=== PATIENT | male | born 1960 | race Caucasian/White ===

== ENCOUNTER 2019-08-10 01:12 | Emergency (ER) | payer MEDICARE, OTHER ==
[~2019-08-10] VITALS: Ht 177.8 cm; Wt 68.2 kg
[~2019-08-10 01:12] MED LIST: ALBU8.5H8 IH; ASPI81TA39 PO; BENZ2TAB10 PO; HYDR25TA82 PO; MONT10TA21 PO; OMEP20TA25 PO; PRED10TA3 PO
[2019-08-10] MEDS ORDERED: ALBUTEROL SULFATE 2.5 MG/0.5 ML NEB SOLUTION NEB ONE (01:30)
[2019-08-10] MEDS ORDERED: IPRATROPIUM BROMIDE 0.5 MG/2.5 ML NEB SOLUTION NEB ONE (01:30)
[2019-08-10 01:49] LABS: BASOPHILS % (AUTO) 0.5 % (0.0-2.0); EOSINOPHILS % (AUTO) 0.3 % (1.0-6.0); HEMATOCRIT 40.9 % (41-53); HEMOGLOBIN 13.7 g/dL (13.5-17.5); LYMPHOCYTES # (AUTO) 2.2 K/uL (1.0-4.8); LYMPHOCYTES % (AUTO) 14.2 % (22.0-44.0); MEAN CORPUSCULAR HEMOGLOBIN 31.6 pg (26.0-34.0); MEAN CORPUSCULAR HGB CONC 33.6 G/dL (31.0-37.0); MEAN CORPUSCULAR VOLUME 94 fL (80-100); MONOCYTES % (AUTO) 6.5 % (2.0-9.0); NEUTROPHILS # (AUTO) 12.1 K/uL (1.8-7.7); NEUTROPHILS % (AUTO) 78.5 % (40.0-70.0); PLATELET COUNT (AUTO) 219 K/uL (150-450); RED BLOOD CELL COUNT(AUTO) 4.35 MIL/uL (4.50-5.90); RED CELL DISTRIBUTION WIDTH 14.7 % (11.5-14.5)
[2019-08-10 02:05] LABS: ANION GAP 10 mmol/L (8-16); CALCIUM, TOTAL 8.5 mg/dL (8.8-10.5); CARBON DIOXIDE 25 mmol/L (22-29); CHLORIDE 103 mmol/L (98-107); CREATININE 0.92 mg/dL (0.60-1.30); GLOMERULAR FILTR. RATE CALC > 60 mL/min (>60); GLUCOSE,RANDOM 101 mg/dL (70-110); POTASSIUM 3.5 mmol/L (3.5-5.1); SODIUM SERUM 138 mmol/L (136-145); UREA NITROGEN, BLOOD 18 mg/dL (7-18)
[2019-08-10 02:09] LABS: ALANINE AMINOTRANSFERASE 60 U/L (12-78); ALBUMIN 3.4 g/dL (3.4-5.0); ALKALINE PHOSPHATASE 51 U/L (46-116); ASPARTATE AMINOTRANSFERASE 39 U/L (15-37); BILIRUBIN,TOTAL 0.1 mg/dL (0.1-1.0); TOTAL PROTEIN, SERUM 6.3 g/dL (6.4-8.2)
[2019-08-10 02:10] LABS: B-TYPE NATRIURETIC PEPTIDE 23 pg/mL (0-100)
[2019-08-10] MEDS ORDERED: PERMETHRIN 1% 60 ML LOTION TP ONE (02:30)
[2019-08-10] MEDS ORDERED: ALBUTEROL SULFATE HFA 90 MCG/PUFF 8 GM INHALER IH ONE (02:30)
[2019-08-10] MEDS ORDERED: PredniSONE 20 MG TABLET PO ONE (02:30)
[2019-08-10 04:00] VITALS: BP 134/77
== END 2019-08-10 04:04 | disposition home or self-care (01) ==
LOC: EMS 01:14
DX: J45.901 Unspecified asthma with (acute) exacerbation (principal); F20.9 Schizophrenia, unspecified; F15.10 Other stimulant abuse, uncomplicated; F17.210 Nicotine dependence, cigarettes, uncomplicated; Z79.82 Long term (current) use of aspirin
CPT/HCPCS: 36415; 71045; 80053; 83880; 84484; 85025; 93005; 94640; 99284; 99406; J7512; J3535

== ENCOUNTER 2019-12-16 09:55 | Inpatient (IN) | payer MEDICARE, OTHER ==
[~2019-12-16] VITALS: Ht 172.7 cm; Wt 60.0 kg
[2019-12-16] MEDS ORDERED: PERMETHRIN 5% 60 GM CREAM TP ONE (10:45)
[2019-12-16 11:07] LABS: BASOPHILS % (AUTO) 0.8 % (0.0-2.0); EOSINOPHILS % (AUTO) 1.1 % (1.0-6.0); HEMATOCRIT 38.3 % (41-53); HEMOGLOBIN 12.7 g/dL (13.5-17.5); LYMPHOCYTES # (AUTO) 1.6 K/uL (1.0-4.8); LYMPHOCYTES % (AUTO) 16.9 % (22.0-44.0); MEAN CORPUSCULAR HEMOGLOBIN 29.7 pg (26.0-34.0); MEAN CORPUSCULAR HGB CONC 33.2 G/dL (31.0-37.0); MEAN CORPUSCULAR VOLUME 90 fL (80-100); MONOCYTES # (AUTO) 0.5 K/uL (0.1-1.0); MONOCYTES % (AUTO) 5.5 % (2.0-9.0); NEUTROPHILS % (AUTO) 75.7 % (40.0-70.0); PLATELET COUNT (AUTO) 379 K/uL (150-450); RED BLOOD CELL COUNT(AUTO) 4.27 MIL/uL (4.50-5.90); RED CELL DISTRIBUTION WIDTH 15.4 % (11.5-14.5)
[2019-12-16 11:23] LABS: D-DIMER 0.32 mg/L FEU (0.00-0.50); PROTHROMBIN TIME 10.1 SEC (9.4-11.6)
[2019-12-16 11:28] LABS: ANION GAP 6 mmol/L (8-16); CALCIUM, TOTAL 8.9 mg/dL (8.8-10.5); CARBON DIOXIDE 29 mmol/L (22-29); CHLORIDE 104 mmol/L (98-107); CREATININE 0.69 mg/dL (0.60-1.30); GLOMERULAR FILTR. RATE CALC > 60 mL/min (>60); GLUCOSE,RANDOM 82 mg/dL (70-110); POTASSIUM 4.5 mmol/L (3.5-5.1); SODIUM SERUM 139 mmol/L (136-145); UREA NITROGEN, BLOOD 10 mg/dL (7-18)
[2019-12-16 11:43] LABS: INFLUENZA TYPE A NEGATIVE FOR TYPE A (NEGATIVE); INFLUENZA TYPE B NEGATIVE FOR TYPE B (NEGATIVE)
[2019-12-16 11:49] LABS: LACTIC ACID 0.8 mmol/L (0.4-2.0)
[2019-12-16 11:50] LABS: B-TYPE NATRIURETIC PEPTIDE 81 pg/mL (0-100)
[2019-12-16 12:06] LABS: ALANINE AMINOTRANSFERASE 22 U/L (12-78); ALBUMIN 3.3 g/dL (3.4-5.0); ALKALINE PHOSPHATASE 86 U/L (46-116); ASPARTATE AMINOTRANSFERASE 20 U/L (15-37); BILIRUBIN,TOTAL 0.2 mg/dL (0.1-1.0); CREATINE KINASE, TOTAL ONLY 145 U/L (39-308); FERRITIN 57 ng/mL (26-388); LACTATE DEHYDROGENASE 168 U/L (85-227); TOTAL PROTEIN, SERUM 6.9 g/dL (6.4-8.2)
[2019-12-16] MEDS ORDERED: ACETAMINOPHEN 325 MG TABLET PO PRN ×2 (13:45→20:30)
[2019-12-16] MEDS ORDERED: 0.9% SODIUM CHLORIDE 10 ML SYRINGE IVP PRN ×2 (13:45→20:30)
[2019-12-16] MEDS ORDERED: MONT4GRA2 PO (17:17)
[2019-12-16] MEDS ORDERED: FLUT16H NASAL (17:17)
[2019-12-16] MEDS ORDERED: DIPH12.54 PO (17:17)
[2019-12-16] MEDS ORDERED: ALBU8HFA IH ×2 (17:17)
[2019-12-16] MEDS ORDERED: TIOT185 IH (17:17)
[2019-12-16] MEDS ORDERED: FOLI1 PO (17:17)
[2019-12-16] MEDS ORDERED: COMBISP IH (17:17)
[2019-12-16 19:21] VITALS: BP 108/74
[2019-12-16] MEDS ORDERED: MONT10TA21 PO (19:41)
[2019-12-16] MEDS: ALBUTEROL SULFATE/IPRATROPIUM 100-20 MCG/SPRAY 4 GM INHALER IH SCH (20:23)
[2019-12-16] MEDS: MethylPREDNISolone SOD SUCC 125 MG/2 ML VIAL IVP SCH (20:23)
[2019-12-16] MEDS: FAMOTIDINE 10 MG/ML 2 ML VIAL IVP SCH (20:30)
[2019-12-16] MEDS ORDERED: MAGNESIUM HYDROXIDE SUSPENSION 30 ML UDCUP PO PRN (20:30)
[2019-12-16] MEDS ORDERED: ONDANSETRON HCL 4 MG/2 ML VIAL IVP PRN (20:30)
[2019-12-16] MEDS ORDERED: ALBUTEROL SULFATE HFA 90 MCG/PUFF 8 GM INHALER IH SCH (21:00)
[2019-12-16] MEDS: DOCUSATE SODIUM 100 MG CAPSULE PO SCH (21:00)
[2019-12-16 23:52] VITALS: BP 137/79
[2019-12-17] MEDS: MethylPREDNISolone SOD SUCC 125 MG/2 ML VIAL IVP SCH ×4 (00:03→22:07)
[2019-12-17 04:12] VITALS: BP 128/76
[2019-12-17] MEDS: ChlordiazePOXIDE HCL 25 MG CAPSULE PO SCH ×3 (06:29→18:03)
[2019-12-17 06:36] LABS: BASOPHILS % (AUTO) 1.2 % (0.0-2.0); EOSINOPHILS % (AUTO) 0.1 % (1.0-6.0); HEMATOCRIT 45.1 % (41-53); LYMPHOCYTES # (AUTO) 0.7 K/uL (1.0-4.8); MEAN CORPUSCULAR HGB CONC 33.2 G/dL (31.0-37.0); MEAN CORPUSCULAR VOLUME 90 fL (80-100); MONOCYTES # (AUTO) 0.1 K/uL (0.1-1.0); MONOCYTES % (AUTO) 0.7 % (2.0-9.0); NEUTROPHILS # (AUTO) 6.6 K/uL (1.8-7.7); PLATELET COUNT (AUTO) 423 K/uL (150-450); RED BLOOD CELL COUNT(AUTO) 4.99 MIL/uL (4.50-5.90); RED CELL DISTRIBUTION WIDTH 15.7 % (11.5-14.5)
[2019-12-17 07:12] LABS: ALANINE AMINOTRANSFERASE 20 U/L (12-78); ALBUMIN 3.3 g/dL (3.4-5.0); ALKALINE PHOSPHATASE 92 U/L (46-116); ANION GAP 8 mmol/L (8-16); ASPARTATE AMINOTRANSFERASE 19 U/L (15-37); BILIRUBIN,TOTAL 0.2 mg/dL (0.1-1.0); CALCIUM, TOTAL 9.4 mg/dL (8.8-10.5); CARBON DIOXIDE 26 mmol/L (22-29); CHLORIDE 102 mmol/L (98-107); CREATININE 0.82 mg/dL (0.60-1.30); GLOMERULAR FILTR. RATE CALC > 60 mL/min (>60); GLUCOSE,RANDOM 139 mg/dL (70-110); POTASSIUM 5.3 mmol/L (3.5-5.1); SODIUM SERUM 136 mmol/L (136-145); TOTAL PROTEIN, SERUM 7.5 g/dL (6.4-8.2); UREA NITROGEN, BLOOD 17 mg/dL (7-18)
[2019-12-17 07:25] VITALS: BP 107/81
[2019-12-17] MEDS: DOCUSATE SODIUM 100 MG CAPSULE PO SCH ×2 (08:01→22:08)
[2019-12-17] MEDS: MONTELUKAST SODIUM 10 MG TABLET PO SCH (08:01)
[2019-12-17] MEDS: FLUTICASONE PROPIONATE 50 MCG/SPRAY 16 GM NASAL SPRAY NASAL SCH (08:01)
[2019-12-17] MEDS: FOLIC ACID 1 MG TABLET PO SCH (08:01)
[2019-12-17] MEDS: FAMOTIDINE 10 MG/ML 2 ML VIAL IVP SCH (08:01)
[2019-12-17] MEDS ORDERED: TIOTROPIUM BROMIDE 18 MCG/INH HANDIHALER [5] IH SCH (09:00)
[2019-12-17 11:26] VITALS: BP 116/78
[2019-12-17] MEDS: ALBUTEROL SULFATE/IPRATROPIUM 100-20 MCG/SPRAY 4 GM INHALER IH SCH ×4 (11:47→22:07)
[2019-12-17 15:03] VITALS: BP 128/66
[2019-12-17] MEDS: OxyCODONE HCL/ACETAMINOPHEN 5-325 MG TABLET PO PRN ×2 (16:02→23:32)
[2019-12-17 19:54] VITALS: BP 139/87
[2019-12-18] VITALS (8 sets, daily range): BP systolic 97–134; BP diastolic 52–92
[2019-12-18] MEDS: ChlordiazePOXIDE HCL 25 MG CAPSULE PO SCH ×5 (00:38→23:10)
[2019-12-18] MEDS: OxyCODONE HCL/ACETAMINOPHEN 5-325 MG TABLET PO PRN ×4 (05:43→23:15)
[2019-12-18] MEDS: ALBUTEROL SULFATE HFA 90 MCG/PUFF 8 GM INHALER IH PRN (05:44)
[2019-12-18] MEDS: MethylPREDNISolone SOD SUCC 125 MG/2 ML VIAL IVP SCH ×3 (08:07→23:11)
[2019-12-18] MEDS: FLUTICASONE PROPIONATE 50 MCG/SPRAY 16 GM NASAL SPRAY NASAL SCH (08:07)
[2019-12-18] MEDS: FOLIC ACID 1 MG TABLET PO SCH (08:08)
[2019-12-18] MEDS: MONTELUKAST SODIUM 10 MG TABLET PO SCH (08:08)
[2019-12-18] MEDS: THIAMINE HCL 100 MG TABLET PO SCH (08:08)
[2019-12-18] MEDS: FAMOTIDINE 10 MG/ML 2 ML VIAL IVP SCH (08:08)
[2019-12-18] MEDS: DOCUSATE SODIUM 100 MG CAPSULE PO SCH ×2 (08:08→20:10)
[2019-12-18] MEDS: ALBUTEROL SULFATE/IPRATROPIUM 100-20 MCG/SPRAY 4 GM INHALER IH SCH ×3 (12:12→20:10)
[2019-12-18 15:00] LABS: BASOPHILS % (AUTO) 0.6 % (0.0-2.0); EOSINOPHILS % (AUTO) 0 % (1.0-6.0); HEMATOCRIT 34.7 % (41-53); HEMOGLOBIN 11.5 g/dL (13.5-17.5); LYMPHOCYTES # (AUTO) 0.2 K/uL (1.0-4.8); LYMPHOCYTES % (AUTO) 1.4 % (22.0-44.0); MEAN CORPUSCULAR HEMOGLOBIN 29.8 pg (26.0-34.0); MEAN CORPUSCULAR HGB CONC 33.1 G/dL (31.0-37.0); MEAN CORPUSCULAR VOLUME 90 fL (80-100); MONOCYTES # (AUTO) 0.5 K/uL (0.1-1.0); MONOCYTES % (AUTO) 2.8 % (2.0-9.0); NEUTROPHILS # (AUTO) 15.9 K/uL (1.8-7.7); PLATELET COUNT (AUTO) 368 K/uL (150-450); RED BLOOD CELL COUNT(AUTO) 3.86 MIL/uL (4.50-5.90); RED CELL DISTRIBUTION WIDTH 16.3 % (11.5-14.5)
[2019-12-18 15:05] LABS: NEUTROPHILS % (AUTO) 95.2 % (40.0-70.0)
[2019-12-18] MEDS: ARIPiprazole 10 MG TABLET PO SCH (15:25)
[2019-12-18 15:30] LABS: ANION GAP 11 mmol/L (8-16); CALCIUM, TOTAL 8.6 mg/dL (8.8-10.5); CARBON DIOXIDE 22 mmol/L (22-29); CHLORIDE 101 mmol/L (98-107); CREATININE 0.93 mg/dL (0.60-1.30); GLOMERULAR FILTR. RATE CALC > 60 mL/min (>60); GLUCOSE,RANDOM 167 mg/dL (70-110); POTASSIUM 4.1 mmol/L (3.5-5.1); SODIUM SERUM 134 mmol/L (136-145); UREA NITROGEN, BLOOD 20 mg/dL (7-18)
[2019-12-18 15:36] LABS: ALANINE AMINOTRANSFERASE 19 U/L (12-78); ALBUMIN 3.3 g/dL (3.4-5.0); ALKALINE PHOSPHATASE 68 U/L (46-116); ASPARTATE AMINOTRANSFERASE 13 U/L (15-37); BILIRUBIN,TOTAL 0.1 mg/dL (0.1-1.0); TOTAL PROTEIN, SERUM 6.7 g/dL (6.4-8.2)
[2019-12-19 04:00] VITALS: BP 122/64
[2019-12-19] MEDS: ChlordiazePOXIDE HCL 25 MG CAPSULE PO SCH ×4 (06:12→23:43)
[2019-12-19 07:22] VITALS: BP 145/83
[2019-12-19] MEDS: DOCUSATE SODIUM 100 MG CAPSULE PO SCH ×2 (08:16→20:40)
[2019-12-19] MEDS: OxyCODONE HCL/ACETAMINOPHEN 5-325 MG TABLET PO PRN ×4 (08:16→20:47)
[2019-12-19] MEDS: FOLIC ACID 1 MG TABLET PO SCH (08:17)
[2019-12-19] MEDS: MONTELUKAST SODIUM 10 MG TABLET PO SCH (08:17)
[2019-12-19] MEDS: THIAMINE HCL 100 MG TABLET PO SCH (08:17)
[2019-12-19] MEDS: ARIPiprazole 10 MG TABLET PO SCH (08:18)
[2019-12-19] MEDS: FAMOTIDINE 10 MG/ML 2 ML VIAL IVP SCH (08:20)
[2019-12-19] MEDS: MethylPREDNISolone SOD SUCC 125 MG/2 ML VIAL IVP SCH ×3 (08:20→23:44)
[2019-12-19] MEDS: ALBUTEROL SULFATE/IPRATROPIUM 100-20 MCG/SPRAY 4 GM INHALER IH SCH ×4 (09:39→20:40)
[2019-12-19] MEDS: FLUTICASONE PROPIONATE 50 MCG/SPRAY 16 GM NASAL SPRAY NASAL SCH (09:40)
[2019-12-19 10:54] VITALS: BP 115/76
[2019-12-19 15:08] VITALS: BP 113/76
[2019-12-19] MEDS ORDERED: TEMAZEPAM 15 MG CAPSULE PO PRN (16:15)
[2019-12-19 19:11] VITALS: BP 127/83
[2019-12-19 23:49] VITALS: BP 121/83
[2019-12-20] MEDS: OxyCODONE HCL/ACETAMINOPHEN 5-325 MG TABLET PO PRN ×2 (03:10→08:28)
[2019-12-20 04:10] VITALS: BP 128/82
[2019-12-20] MEDS: ChlordiazePOXIDE HCL 25 MG CAPSULE PO SCH ×2 (05:53→11:06)
[2019-12-20 07:32] VITALS: BP 126/80
[2019-12-20] MEDS: ALBUTEROL SULFATE/IPRATROPIUM 100-20 MCG/SPRAY 4 GM INHALER IH SCH ×2 (08:25→13:38)
[2019-12-20] MEDS: FLUTICASONE PROPIONATE 50 MCG/SPRAY 16 GM NASAL SPRAY NASAL SCH (08:25)
[2019-12-20] MEDS: ALBUTEROL SULFATE HFA 90 MCG/PUFF 8 GM INHALER IH PRN (08:26)
[2019-12-20] MEDS: MethylPREDNISolone SOD SUCC 125 MG/2 ML VIAL IVP SCH (08:26)
[2019-12-20] MEDS: DOCUSATE SODIUM 100 MG CAPSULE PO SCH (08:26)
[2019-12-20] MEDS: FAMOTIDINE 10 MG/ML 2 ML VIAL IVP SCH (08:27)
[2019-12-20] MEDS: FOLIC ACID 1 MG TABLET PO SCH (08:27)
[2019-12-20] MEDS: ARIPiprazole 10 MG TABLET PO SCH (08:27)
[2019-12-20] MEDS: THIAMINE HCL 100 MG TABLET PO SCH (08:27)
[2019-12-20] MEDS: MONTELUKAST SODIUM 10 MG TABLET PO SCH (08:27)
[2019-12-20 11:39] VITALS: BP 121/78
[2019-12-20] MEDS ORDERED: LORazepam 1 MG TABLET PO PRN (13:30)
[2019-12-20] MEDS ORDERED: PredniSONE 20 MG TABLET PO ONE (13:30)
[2019-12-20] MEDS ORDERED: PRED20 PO ×3 (14:09→14:11)
[2019-12-20] MEDS ORDERED: TEMA15CA PO (14:09)
[2019-12-20] MEDS ORDERED: PRED10 PO (14:11)
[2019-12-21] MEDS ORDERED: FAMOTIDINE 20 MG TABLET PO SCH (09:00)
== END 2019-12-20 14:55 | disposition home or self-care (01) | DRG 190 ==
LOC: EMS 09:57 → 5N 14:03 → 6N 14:55 → 5S 12-18 10:45 → 6N 12-18 20:30
PROVIDERS: ADMIT Internal Medicine; ATTEND Internal Medicine
DX: J44.1 Chronic obstructive pulmonary disease with (acute) exacerbation (principal); E43 Unspecified severe protein-calorie malnutrition; F20.0 Paranoid schizophrenia; F10.20 Alcohol dependence, uncomplicated; D64.9 Anemia, unspecified; F17.210 Nicotine dependence, cigarettes, uncomplicated; Z20.828 Contact with and (suspected) exposure to other viral communicable diseases; Z68.20 Body mass index [BMI] 20.0-20.9, adult; Z88.1 Allergy status to other antibiotic agents
CPT/HCPCS: 82728; 83605; 83615; 85379; 85384; 86140; 87040; 87635; 87804; 93005; G0480; J2930; J3490; J3535

== ENCOUNTER 2020-03-14 18:38 | Emergency (ER) | payer MEDICARE, OTHER ==
[~2020-03-14] VITALS: Ht 177.8 cm; Wt 59.1 kg
[~2020-03-14 18:38] MED LIST changes: -ALBU8.5H8 IH; +ALBU8HFA IH; -ASPI81TA39 PO; +BENZ100C68 PO; -BENZ2TAB10 PO; +COMBISP IH; +DIPH12.54 PO; +FLUT16H NASAL; +FOLI-130 PO; -HYDR25TA82 PO; -OMEP20TA25 PO; +PRED10 PO; -PRED10TA3 PO; +PRED20 PO; +PRED5 PO; +TIOT185 IH
[2020-03-14] MEDS ORDERED: CEPHALEXIN MONOHYDRATE 500 MG CAPSULE PO ONE (19:30)
[2020-03-14] MEDS ORDERED: MethylPREDNISolone SOD SUCC 125 MG/2 ML VIAL IM ONE (19:30)
[2020-03-14] MEDS ORDERED: IPRATROPIUM BROMIDE HFA 17 MCG/PUFF 12.9 GM INHALER IH ONE (19:30)
[2020-03-14] MEDS ORDERED: ALBUTEROL SULFATE HFA 90 MCG/PUFF 8 GM INHALER IH ONE (19:30)
[2020-03-14 20:00] VITALS: BP 127/82
== END 2020-03-14 20:48 | disposition home or self-care (01) ==
LOC: EMS 18:48
DX: J44.0 Chronic obstructive pulmonary disease with (acute) lower respiratory infection (principal); J40 Bronchitis, not specified as acute or chronic; B86 Scabies; K29.70 Gastritis, unspecified, without bleeding; F20.9 Schizophrenia, unspecified; Z88.2 Allergy status to sulfonamides; Z79.899 Other long term (current) drug therapy; F10.10 Alcohol abuse, uncomplicated; F14.10 Cocaine abuse, uncomplicated; F17.210 Nicotine dependence, cigarettes, uncomplicated; Y90.9 Presence of alcohol in blood, level not specified
CPT/HCPCS: 94640; 96372; 99283; J2930; J3535

== ENCOUNTER 2020-03-14 23:45 | Emergency (ER) | payer MEDICARE, OTHER ==
[~2020-03-14] VITALS: Ht 175.3 cm; Wt 59.1 kg
[2020-03-15] MEDS ORDERED: ALBUTEROL SULFATE 5 MG/ML 20 ML NEB SOLN [BULK] NEB ONE (00:45)
[2020-03-15] MEDS ORDERED: 0.9% SODIUM CHLORIDE 5 ML NEB SOLUTION NEB ONE (01:13)
[2020-03-15 01:15] LABS: BASOPHILS % (AUTO) 0.2 % (0.0-2.0); EOSINOPHILS % (AUTO) 0.1 % (1.0-6.0); HEMATOCRIT 38.6 % (41-53); HEMOGLOBIN 13.1 g/dL (13.5-17.5); LYMPHOCYTES # (AUTO) 0.3 K/uL (1.0-4.8); LYMPHOCYTES % (AUTO) 3.7 % (22.0-44.0); MEAN CORPUSCULAR HGB CONC 33.9 G/dL (31.0-37.0); MEAN CORPUSCULAR VOLUME 92 fL (80-100); MONOCYTES # (AUTO) 0.1 K/uL (0.1-1.0); MONOCYTES % (AUTO) 0.7 % (2.0-9.0); NEUTROPHILS # (AUTO) 7.3 K/uL (1.8-7.7); PLATELET COUNT (AUTO) 251 K/uL (150-450); RED BLOOD CELL COUNT(AUTO) 4.22 MIL/uL (4.50-5.90); RED CELL DISTRIBUTION WIDTH 16.6 % (11.5-14.5)
[2020-03-15 01:21] LABS: ANION GAP 9 mmol/L (8-16); CALCIUM, TOTAL 8.4 mg/dL (8.8-10.5); CARBON DIOXIDE 27 mmol/L (22-29); CHLORIDE 98 mmol/L (98-107); CREATININE 1.06 mg/dL (0.60-1.30); GLOMERULAR FILTR. RATE CALC > 60 mL/min (>60); GLUCOSE,RANDOM 290 mg/dL (70-110); POTASSIUM 3.8 mmol/L (3.5-5.1); SODIUM SERUM 134 mmol/L (136-145); UREA NITROGEN, BLOOD 16 mg/dL (7-18)
[2020-03-15 01:24] LABS: NEUTROPHILS % (AUTO) 95.3 % (40.0-70.0)
[2020-03-15 01:27] LABS: ALANINE AMINOTRANSFERASE 34 U/L (12-78); ALKALINE PHOSPHATASE 77 U/L (46-116); ASPARTATE AMINOTRANSFERASE 16 U/L (15-37); TOTAL PROTEIN, SERUM 5.8 g/dL (6.4-8.2)
[2020-03-15 01:27] LABS: AMPHET/METH SCREEN,URINE NEGATIVE (NEGATIVE); BARBITURATE SCREEN, URINE NEGATIVE (NEGATIVE); BENZODIAZEPINES SCREEN,URINE NEGATIVE (NEGATIVE); CANNABINOID SCREEN,URINE NEGATIVE (NEGATIVE); COCAINE SCREEN,URINE NEGATIVE (NEGATIVE); METHADONE SCREEN, URINE NEGATIVE (NEGATIVE); OPIATE SCREEN,URINE NEGATIVE (NEGATIVE)
[2020-03-15 01:31] LABS: PHENCYCLIDINE SCREEN,URINE NEGATIVE (NEGATIVE)
[2020-03-15 01:38] LABS: BILIRUBIN,TOTAL 0.1 mg/dL (0.1-1.0)
[2020-03-15 01:48] LABS: B-TYPE NATRIURETIC PEPTIDE 10 pg/mL (0-100)
[2020-03-15] MEDS ORDERED: PredniSONE 20 MG TABLET PO ONE (05:00)
[2020-03-15 05:13] VITALS: BP 141/82
== END 2020-03-15 05:31 | disposition home or self-care (01) ==
LOC: EMS 23:47
DX: J44.9 Chronic obstructive pulmonary disease, unspecified (principal); F20.9 Schizophrenia, unspecified; F17.210 Nicotine dependence, cigarettes, uncomplicated; Z88.0 Allergy status to penicillin; Z88.2 Allergy status to sulfonamides; Z79.899 Other long term (current) drug therapy
CPT/HCPCS: 36415; 71045; 80053; 80307; 83880; 84484; 85025; 93005; 94640; 99285; G0480; J7512; 96372; J2930; J3535; J7611

== ENCOUNTER 2020-03-17 13:31 | Inpatient (IN) | payer MEDICARE, MEDICAID ==
[~2020-03-17] VITALS: Ht 177.8 cm; Wt 62.3 kg
[2020-03-17 17:08] VITALS: BP 155/84
[2020-03-17] MEDS: MAG HYDROX/AL HYDROX/SIMETH 30 ML SUSP UDCUP PO PRN (20:57)
[2020-03-17] MEDS: ZOLPIDEM TARTRATE 10 MG TABLET PO PRN (21:09)
[2020-03-18 08:00] VITALS: BP 145/89
[2020-03-18] MEDS ORDERED: CloNIDine HCL 0.1 MG TABLET PO PRN (08:30)
[2020-03-18] MEDS ORDERED: LOPERAMIDE HCL 2 MG CAPSULE PO PRN (08:30)
[2020-03-18] MEDS ORDERED: GuaiFENesin/D-METHORPHAN [SUGAR-FREE] 200-20MG/10 ML SYRUP UDCUP PO PRN (08:30)
[2020-03-18] MEDS ORDERED: MAGNESIUM HYDROXIDE SUSPENSION 30 ML UDCUP PO PRN (08:30)
[2020-03-18] MEDS ORDERED: ONDANSETRON HCL 4 MG TABLET PO PRN (08:30)
[2020-03-18] MEDS ORDERED: DOCUSATE SODIUM 100 MG CAPSULE PO PRN (08:30)
[2020-03-18] MEDS ORDERED: NICOTINE 14 MG/24 HOUR PATCH TD PRN (08:30)
[2020-03-18] MEDS ORDERED: PETROLATUM,WHITE 28 GM JELLY TP PRN (08:30)
[2020-03-18] MEDS: MONTELUKAST SODIUM 10 MG TABLET PO SCH (08:39)
[2020-03-18] MEDS: PredniSONE 20 MG TABLET PO SCH (08:39)
[2020-03-18] MEDS: LORazepam 2 MG TABLET PO PRN ×3 (08:39→17:44)
[2020-03-18] MEDS: ALBUTEROL SULFATE HFA 90 MCG/PUFF 8 GM INHALER IH PRN ×2 (09:18→20:36)
[2020-03-18] MEDS: HALOPERIDOL 5 MG TABLET PO PRN ×2 (10:30→16:47)
[2020-03-18] MEDS: RisperiDONE 2 MG TABLET PO SCH ×2 (13:21→20:34)
[2020-03-18 16:30] VITALS: BP 142/91
[2020-03-18] MEDS: MAG HYDROX/AL HYDROX/SIMETH 30 ML SUSP UDCUP PO PRN (16:58)
[2020-03-18] MEDS ORDERED: RisperiDONE 2 MG TABLET PO SCH (17:00)
[2020-03-18] MEDS: ZOLPIDEM TARTRATE 10 MG TABLET PO PRN (20:35)
[2020-03-19] VITALS: BP 118/92
[2020-03-19] MEDS: LORazepam 2 MG TABLET PO PRN ×4 (01:11→17:49)
[2020-03-19] MEDS: MAG HYDROX/AL HYDROX/SIMETH ES 30 ML SUSPENSION UDCUP PO PRN ×2 (03:01→16:01)
[2020-03-19] MEDS: MAG HYDROX/AL HYDROX/SIMETH 30 ML SUSP UDCUP PO PRN ×2 (03:02→20:47)
[2020-03-19] MEDS: HALOPERIDOL 5 MG TABLET PO PRN ×2 (03:29→09:02)
[2020-03-19 08:00] VITALS: BP 123/84
[2020-03-19] MEDS: MONTELUKAST SODIUM 10 MG TABLET PO SCH (08:35)
[2020-03-19] MEDS: PredniSONE 20 MG TABLET PO SCH (08:35)
[2020-03-19] MEDS: RisperiDONE 2 MG TABLET PO SCH ×2 (08:35→16:00)
[2020-03-19] MEDS: ALBUTEROL SULFATE HFA 90 MCG/PUFF 8 GM INHALER IH PRN (09:02)
[2020-03-19 16:01] VITALS: BP 110/76
[2020-03-19] MEDS: ZOLPIDEM TARTRATE 10 MG TABLET PO PRN (20:48)
[2020-03-20] MEDS: ALBUTEROL SULFATE HFA 90 MCG/PUFF 8 GM INHALER IH PRN (06:53)
[2020-03-20 08:42] VITALS: BP 112/82
[2020-03-20] MEDS: MONTELUKAST SODIUM 10 MG TABLET PO SCH (08:54)
[2020-03-20] MEDS: HALOPERIDOL 5 MG TABLET PO PRN ×2 (08:54→12:56)
[2020-03-20] MEDS: LORazepam 2 MG TABLET PO PRN ×3 (08:54→21:13)
[2020-03-20] MEDS: RisperiDONE 2 MG TABLET PO SCH ×2 (08:54→16:45)
[2020-03-20] MEDS: PredniSONE 20 MG TABLET PO SCH (08:54)
[2020-03-20] MEDS: MAG HYDROX/AL HYDROX/SIMETH ES 30 ML SUSPENSION UDCUP PO PRN ×2 (10:00→17:33)
[2020-03-20 21:23] VITALS: BP 129/77
[2020-03-21 00:50] VITALS: BP 130/82
[2020-03-21] MEDS: ZOLPIDEM TARTRATE 10 MG TABLET PO PRN ×2 (01:01→23:47)
[2020-03-21] MEDS: HALOPERIDOL 5 MG TABLET PO PRN ×3 (01:01→14:34)
[2020-03-21] MEDS: ALBUTEROL SULFATE HFA 90 MCG/PUFF 8 GM INHALER IH PRN ×2 (01:04→09:02)
[2020-03-21 08:00] VITALS: BP 139/92
[2020-03-21] MEDS: RisperiDONE 2 MG TABLET PO SCH (09:00)
[2020-03-21] MEDS: MONTELUKAST SODIUM 10 MG TABLET PO SCH (09:01)
[2020-03-21] MEDS: PredniSONE 20 MG TABLET PO SCH (09:01)
[2020-03-21] MEDS: LORazepam 2 MG TABLET PO PRN ×2 (09:01→14:34)
[2020-03-21] MEDS ORDERED: LORazepam 2 MG/ML VIAL ONE (10:13)
[2020-03-21] MEDS ORDERED: HALOPERIDOL LACTATE 5 MG/ML VIAL ONE (10:13)
[2020-03-21] MEDS ORDERED: DiphenhydrAMINE HCL 50 MG/ML VIAL ONE (10:13)
[2020-03-21] MEDS ORDERED: HALOPERIDOL LACTATE 5 MG/ML VIAL IM ONE (10:15)
[2020-03-21] MEDS ORDERED: LORazepam 2 MG/ML VIAL IM ONE (10:15)
[2020-03-21] MEDS ORDERED: DiphenhydrAMINE HCL 50 MG/ML VIAL IM ONE (10:15)
[2020-03-21] MEDS: CarBAMazepine 200 MG TABLET PO SCH ×2 (10:20→17:05)
[2020-03-21] MEDS: MAG HYDROX/AL HYDROX/SIMETH ES 30 ML SUSPENSION UDCUP PO PRN ×2 (15:02→18:21)
[2020-03-21 16:00] VITALS: BP 115/81
[2020-03-21] MEDS: RisperiDONE 3 MG TABLET PO SCH (17:05)
[2020-03-21] MEDS: ACETAMINOPHEN 325 MG TABLET PO PRN (18:22)
[2020-03-22 00:10] VITALS: BP 138/87
[2020-03-22] MEDS: ALBUTEROL SULFATE HFA 90 MCG/PUFF 8 GM INHALER IH PRN ×2 (00:17→09:15)
[2020-03-22] MEDS: LORazepam 2 MG TABLET PO PRN ×3 (03:56→13:36)
[2020-03-22 07:29] LABS: MAGNESIUM 2.2 mg/dL (1.80-2.40); PHOSPHORUS 4.1 mg/dL (2.5-4.9)
[2020-03-22 08:00] VITALS: BP 143/76
[2020-03-22] MEDS: MULTIVITAMINS WITH MINERALS, THERAPEUTIC TABLET PO SCH (09:15)
[2020-03-22] MEDS: MONTELUKAST SODIUM 10 MG TABLET PO SCH (09:15)
[2020-03-22] MEDS: RisperiDONE 3 MG TABLET PO SCH ×2 (09:16→16:01)
[2020-03-22] MEDS: CarBAMazepine 200 MG TABLET PO SCH ×2 (09:16→16:01)
[2020-03-22] MEDS: PredniSONE 20 MG TABLET PO SCH (09:17)
[2020-03-22] MEDS: HALOPERIDOL 5 MG TABLET PO PRN ×2 (09:19→13:36)
[2020-03-22] MEDS ORDERED: 0.9% SODIUM CHLORIDE 5 ML NEB SOLUTION NEB ONE (10:41)
[2020-03-22] MEDS: ALBUTEROL SULFATE 2.5 MG/0.5 ML NEB SOLUTION NEB PRN (10:59)
[2020-03-22 15:55] VITALS: BP 133/77
[2020-03-22] MEDS: ACETAMINOPHEN 325 MG TABLET PO PRN (16:01)
[2020-03-22 16:51] VITALS: BP 125/75
[2020-03-22] MEDS: ZOLPIDEM TARTRATE 10 MG TABLET PO PRN (20:41)
[2020-03-23] MEDS: ACETAMINOPHEN 325 MG TABLET PO PRN (05:44)
[2020-03-23 05:46] VITALS: BP 130/68
[2020-03-23] MEDS: RisperiDONE 3 MG TABLET PO SCH ×2 (08:57→17:56)
[2020-03-23] MEDS: MULTIVITAMINS WITH MINERALS, THERAPEUTIC TABLET PO SCH (08:57)
[2020-03-23] MEDS: PredniSONE 20 MG TABLET PO SCH (08:58)
[2020-03-23] MEDS: MONTELUKAST SODIUM 10 MG TABLET PO SCH (08:58)
[2020-03-23] MEDS: CarBAMazepine 200 MG TABLET PO SCH ×2 (09:00→17:56)
[2020-03-23] MEDS: LORazepam 2 MG TABLET PO PRN ×4 (09:03→23:59)
[2020-03-23] MEDS: ALBUTEROL SULFATE HFA 90 MCG/PUFF 8 GM INHALER IH PRN ×2 (09:04→19:10)
[2020-03-23] MEDS: MAG HYDROX/AL HYDROX/SIMETH ES 30 ML SUSPENSION UDCUP PO PRN (09:04)
[2020-03-23] MEDS: MAG HYDROX/AL HYDROX/SIMETH 30 ML SUSP UDCUP PO PRN (09:04)
[2020-03-23 09:34] VITALS: BP 133/70
[2020-03-23 16:51] VITALS: BP 131/78
[2020-03-24] MEDS: ACETAMINOPHEN 325 MG TABLET PO PRN ×2 (01:53→23:30)
[2020-03-24 01:59] VITALS: BP 122/93
[2020-03-24 08:00] VITALS: BP 132/79
[2020-03-24] MEDS: MULTIVITAMINS WITH MINERALS, THERAPEUTIC TABLET PO SCH (09:04)
[2020-03-24] MEDS: RisperiDONE 3 MG TABLET PO SCH ×2 (09:04→16:54)
[2020-03-24] MEDS: CarBAMazepine 200 MG TABLET PO SCH ×2 (09:05→16:54)
[2020-03-24] MEDS: MONTELUKAST SODIUM 10 MG TABLET PO SCH (09:06)
[2020-03-24] MEDS: PredniSONE 20 MG TABLET PO SCH (09:06)
[2020-03-24] MEDS: LORazepam 2 MG TABLET PO PRN ×2 (09:22→16:59)
[2020-03-24] MEDS: ALBUTEROL SULFATE HFA 90 MCG/PUFF 8 GM INHALER IH PRN ×2 (09:24→23:33)
[2020-03-24] MEDS: HALOPERIDOL 5 MG TABLET PO PRN (10:49)
[2020-03-24] MEDS: MAG HYDROX/AL HYDROX/SIMETH ES 30 ML SUSPENSION UDCUP PO PRN (11:28)
[2020-03-24 16:00] VITALS: BP 151/70
[2020-03-24] MEDS: ZOLPIDEM TARTRATE 10 MG TABLET PO PRN (21:59)
[2020-03-24 23:30] VITALS: BP 121/84
[2020-03-25] MEDS: LORazepam 2 MG TABLET PO PRN ×4 (01:12→14:34)
[2020-03-25] MEDS: IBUPROFEN 400 MG TABLET PO PRN ×2 (03:09→15:58)
[2020-03-25 03:10] VITALS: BP 129/80
[2020-03-25] MEDS: HALOPERIDOL 5 MG TABLET PO PRN ×2 (04:05→15:57)
[2020-03-25] MEDS: PredniSONE 20 MG TABLET PO SCH (08:24)
[2020-03-25] MEDS: CarBAMazepine 200 MG TABLET PO SCH ×3 (08:24→15:57)
[2020-03-25] MEDS: MULTIVITAMINS WITH MINERALS, THERAPEUTIC TABLET PO SCH (08:25)
[2020-03-25 08:26] VITALS: BP 130/70
[2020-03-25] MEDS: ACETAMINOPHEN 325 MG TABLET PO PRN (08:26)
[2020-03-25] MEDS: RisperiDONE 3 MG TABLET PO SCH ×2 (08:26→15:54)
[2020-03-25] MEDS: MONTELUKAST SODIUM 10 MG TABLET PO SCH (08:27)
[2020-03-25] MEDS: ALBUTEROL SULFATE HFA 90 MCG/PUFF 8 GM INHALER IH PRN ×2 (08:28→18:49)
[2020-03-25 09:26] VITALS: BP 120/70
[2020-03-25] MEDS: MAG HYDROX/AL HYDROX/SIMETH 30 ML SUSP UDCUP PO PRN (09:59)
[2020-03-25 15:58] VITALS: BP 122/69
[2020-03-25 17:12] VITALS: BP 108/57
[2020-03-25] MEDS: ZOLPIDEM TARTRATE 10 MG TABLET PO PRN (20:01)
[2020-03-25] MEDS: MAG HYDROX/AL HYDROX/SIMETH ES 30 ML SUSPENSION UDCUP PO PRN (20:13)
[2020-03-26] MEDS: LORazepam 2 MG TABLET PO PRN ×2 (01:37→14:10)
[2020-03-26] MEDS: IBUPROFEN 400 MG TABLET PO PRN ×2 (01:38→17:20)
[2020-03-26 01:39] VITALS: BP 123/78
[2020-03-26] MEDS: ALBUTEROL SULFATE HFA 90 MCG/PUFF 8 GM INHALER IH PRN ×3 (03:06→22:58)
[2020-03-26] MEDS: MULTIVITAMINS WITH MINERALS, THERAPEUTIC TABLET PO SCH (08:13)
[2020-03-26] MEDS: PredniSONE 20 MG TABLET PO SCH (08:13)
[2020-03-26] MEDS: RisperiDONE 3 MG TABLET PO SCH ×2 (08:13→17:19)
[2020-03-26] MEDS: MONTELUKAST SODIUM 10 MG TABLET PO SCH (08:14)
[2020-03-26] MEDS: ACETAMINOPHEN 325 MG TABLET PO PRN ×2 (08:18→20:52)
[2020-03-26] MEDS: CarBAMazepine 200 MG TABLET PO SCH ×2 (08:20→17:20)
[2020-03-26 09:30] VITALS: BP 159/91
[2020-03-26 16:00] VITALS: BP 97/65
[2020-03-26] MEDS: MAG HYDROX/AL HYDROX/SIMETH ES 30 ML SUSPENSION UDCUP PO PRN (20:49)
[2020-03-26 20:52] VITALS: BP 118/74
[2020-03-26] MEDS: ZOLPIDEM TARTRATE 10 MG TABLET PO PRN (20:53)
[2020-03-27 01:06] VITALS: BP 137/76
[2020-03-27] MEDS: MAG HYDROX/AL HYDROX/SIMETH ES 30 ML SUSPENSION UDCUP PO PRN (01:56)
[2020-03-27 03:49] VITALS: BP 114/70
[2020-03-27] MEDS: LORazepam 2 MG TABLET PO PRN ×2 (03:49→14:28)
[2020-03-27] MEDS: RisperiDONE 3 MG TABLET PO SCH ×2 (08:25→16:29)
[2020-03-27] MEDS: MONTELUKAST SODIUM 10 MG TABLET PO SCH (08:25)
[2020-03-27] MEDS: PredniSONE 20 MG TABLET PO SCH (08:25)
[2020-03-27] MEDS: MULTIVITAMINS WITH MINERALS, THERAPEUTIC TABLET PO SCH (08:25)
[2020-03-27] MEDS: ALBUTEROL SULFATE HFA 90 MCG/PUFF 8 GM INHALER IH PRN ×2 (08:26→16:29)
[2020-03-27] MEDS: CarBAMazepine 200 MG TABLET PO SCH ×2 (08:26→16:29)
[2020-03-27] MEDS: MAG HYDROX/AL HYDROX/SIMETH 30 ML SUSP UDCUP PO PRN (16:29)
[2020-03-27 16:43] VITALS: BP 98/65
[2020-03-27 17:18] VITALS: BP 123/83
[2020-03-27] MEDS: IBUPROFEN 400 MG TABLET PO PRN (17:18)
[2020-03-27] MEDS: ZOLPIDEM TARTRATE 10 MG TABLET PO PRN (22:20)
[2020-03-28 00:40] VITALS: BP 127/87
[2020-03-28] MEDS: ACETAMINOPHEN 325 MG TABLET PO PRN ×2 (00:46→12:35)
[2020-03-28] MEDS: LORazepam 2 MG TABLET PO PRN ×3 (00:46→16:46)
[2020-03-28] MEDS: ALBUTEROL SULFATE HFA 90 MCG/PUFF 8 GM INHALER IH PRN ×3 (02:14→16:04)
[2020-03-28] MEDS: MULTIVITAMINS WITH MINERALS, THERAPEUTIC TABLET PO SCH (08:08)
[2020-03-28] MEDS: RisperiDONE 3 MG TABLET PO SCH ×2 (08:08→15:59)
[2020-03-28] MEDS: PredniSONE 20 MG TABLET PO SCH (08:08)
[2020-03-28] MEDS: MONTELUKAST SODIUM 10 MG TABLET PO SCH (08:08)
[2020-03-28] MEDS: CarBAMazepine 200 MG TABLET PO SCH ×2 (08:08→15:59)
[2020-03-28 08:10] VITALS: BP_SYST 118; BP_SYST 98; BP_DIAS 63; BP_DIAS 68
[2020-03-28] MEDS: IBUPROFEN 400 MG TABLET PO PRN ×2 (08:10→20:20)
[2020-03-28] MEDS: MAG HYDROX/AL HYDROX/SIMETH ES 30 ML SUSPENSION UDCUP PO PRN ×2 (09:32→20:21)
[2020-03-28 12:35] VITALS: BP 116/68
[2020-03-28] MEDS: HALOPERIDOL 5 MG TABLET PO PRN (16:00)
[2020-03-28 16:17] VITALS: BP 115/56
[2020-03-28] MEDS: ZOLPIDEM TARTRATE 10 MG TABLET PO PRN (20:20)
[2020-03-28 20:22] VITALS: BP 112/65
[2020-03-29 00:50] VITALS: BP 127/83
[2020-03-29] MEDS: ACETAMINOPHEN 325 MG TABLET PO PRN (00:53)
[2020-03-29] MEDS: LORazepam 2 MG TABLET PO PRN ×3 (00:53→15:52)
[2020-03-29] MEDS: ALBUTEROL SULFATE HFA 90 MCG/PUFF 8 GM INHALER IH PRN ×2 (00:54→15:55)
[2020-03-29] MEDS: HALOPERIDOL 5 MG TABLET PO PRN ×2 (06:40→20:40)
[2020-03-29] MEDS: RisperiDONE 3 MG TABLET PO SCH ×2 (08:13→16:35)
[2020-03-29] MEDS: MULTIVITAMINS WITH MINERALS, THERAPEUTIC TABLET PO SCH (08:13)
[2020-03-29] MEDS: CarBAMazepine 200 MG TABLET PO SCH ×2 (08:13→16:36)
[2020-03-29] MEDS: PredniSONE 20 MG TABLET PO SCH (08:14)
[2020-03-29] MEDS: MONTELUKAST SODIUM 10 MG TABLET PO SCH (08:14)
[2020-03-29 08:41] VITALS: BP 117/70
[2020-03-29] MEDS: MAG HYDROX/AL HYDROX/SIMETH ES 30 ML SUSPENSION UDCUP PO PRN ×2 (08:57→20:41)
[2020-03-29 11:38] VITALS: BP 110/73
[2020-03-29 14:11] VITALS: BP 97/63
[2020-03-29 14:45] VITALS: BP 103/73
[2020-03-29] MEDS: IBUPROFEN 400 MG TABLET PO PRN (14:45)
[2020-03-29 19:37] VITALS: BP 132/92
[2020-03-29] MEDS: ZOLPIDEM TARTRATE 10 MG TABLET PO PRN (20:41)
[2020-03-30 04:50] VITALS: BP 137/79
[2020-03-30] MEDS: ACETAMINOPHEN 325 MG TABLET PO PRN ×2 (04:50→19:07)
[2020-03-30] MEDS: ALBUTEROL SULFATE HFA 90 MCG/PUFF 8 GM INHALER IH PRN ×2 (04:50→15:43)
[2020-03-30] MEDS: LORazepam 2 MG TABLET PO PRN ×3 (04:56→20:57)
[2020-03-30] MEDS: MONTELUKAST SODIUM 10 MG TABLET PO SCH (08:34)
[2020-03-30] MEDS: RisperiDONE 3 MG TABLET PO SCH ×3 (08:34→16:00)
[2020-03-30] MEDS: MULTIVITAMINS WITH MINERALS, THERAPEUTIC TABLET PO SCH (08:34)
[2020-03-30] MEDS: CarBAMazepine 200 MG TABLET PO SCH ×2 (08:35→16:00)
[2020-03-30] MEDS: PredniSONE 20 MG TABLET PO SCH (08:36)
[2020-03-30 09:00] VITALS: BP 107/63
[2020-03-30] MEDS: MAG HYDROX/AL HYDROX/SIMETH ES 30 ML SUSPENSION UDCUP PO PRN (11:58)
[2020-03-30] MEDS: HALOPERIDOL 5 MG TABLET PO PRN (14:20)
[2020-03-30 16:00] VITALS: BP 115/68
[2020-03-30] MEDS: IBUPROFEN 400 MG TABLET PO PRN (16:00)
[2020-03-30 19:07] VITALS: BP 118/65
[2020-03-30] MEDS: ZOLPIDEM TARTRATE 10 MG TABLET PO PRN (20:24)
[2020-03-31 03:17] VITALS: BP 106/56
[2020-03-31] MEDS: HALOPERIDOL 5 MG TABLET PO PRN (03:17)
[2020-03-31] MEDS: ALBUTEROL SULFATE HFA 90 MCG/PUFF 8 GM INHALER IH PRN ×3 (03:17→21:08)
[2020-03-31] MEDS: IBUPROFEN 400 MG TABLET PO PRN ×2 (05:00→19:19)
[2020-03-31 08:00] VITALS: BP 142/78
[2020-03-31] MEDS: PredniSONE 20 MG TABLET PO SCH (08:07)
[2020-03-31] MEDS: RisperiDONE 3 MG TABLET PO SCH ×3 (08:07→23:11)
[2020-03-31] MEDS: MULTIVITAMINS WITH MINERALS, THERAPEUTIC TABLET PO SCH (08:07)
[2020-03-31] MEDS: CarBAMazepine 200 MG TABLET PO SCH ×3 (08:07→23:09)
[2020-03-31] MEDS: MONTELUKAST SODIUM 10 MG TABLET PO SCH (08:08)
[2020-03-31] MEDS: LORazepam 2 MG TABLET PO PRN ×3 (08:10→23:02)
[2020-03-31] MEDS: MAG HYDROX/AL HYDROX/SIMETH ES 30 ML SUSPENSION UDCUP PO PRN ×2 (10:45→21:08)
[2020-03-31] MEDS: ALBUTEROL SULFATE 2.5 MG/0.5 ML NEB SOLUTION NEB PRN (11:20)
[2020-03-31] MEDS ORDERED: HALOPERIDOL LACTATE 5 MG/ML VIAL IM PRN (13:45)
[2020-03-31 17:14] VITALS: BP 120/80
[2020-03-31] MEDS: ZOLPIDEM TARTRATE 10 MG TABLET PO PRN (21:08)
[2020-04-01 01:00] VITALS: BP 110/78
[2020-04-01] MEDS: ACETAMINOPHEN 325 MG TABLET PO PRN ×3 (01:06→23:52)
[2020-04-01 08:00] VITALS: BP 118/79
[2020-04-01] MEDS: RisperiDONE 3 MG TABLET PO SCH (08:24)
[2020-04-01] MEDS: MONTELUKAST SODIUM 10 MG TABLET PO SCH (08:25)
[2020-04-01] MEDS: PredniSONE 20 MG TABLET PO SCH (08:25)
[2020-04-01] MEDS: CarBAMazepine 200 MG TABLET PO SCH (08:25)
[2020-04-01] MEDS: MULTIVITAMINS WITH MINERALS, THERAPEUTIC TABLET PO SCH (08:25)
[2020-04-01] MEDS: LORazepam 2 MG TABLET PO PRN (12:55)
[2020-04-01 16:41] VITALS: BP 115/71
[2020-04-01] MEDS: ALBUTEROL SULFATE HFA 90 MCG/PUFF 8 GM INHALER IH PRN (16:46)
[2020-04-01] MEDS: IBUPROFEN 400 MG TABLET PO PRN (16:47)
[2020-04-01] MEDS: ZOLPIDEM TARTRATE 10 MG TABLET PO PRN (23:35)
[2020-04-01 23:52] VITALS: BP 112/56
[2020-04-02] MEDS: MAG HYDROX/AL HYDROX/SIMETH ES 30 ML SUSPENSION UDCUP PO PRN ×2 (01:46→14:46)
[2020-04-02] MEDS: ALBUTEROL SULFATE HFA 90 MCG/PUFF 8 GM INHALER IH PRN ×2 (01:46→10:03)
[2020-04-02] MEDS: MULTIVITAMINS WITH MINERALS, THERAPEUTIC TABLET PO SCH (08:35)
[2020-04-02] MEDS: RisperiDONE 3 MG TABLET PO SCH ×2 (08:36→17:16)
[2020-04-02] MEDS: PredniSONE 20 MG TABLET PO SCH (08:36)
[2020-04-02] MEDS: MONTELUKAST SODIUM 10 MG TABLET PO SCH (08:36)
[2020-04-02] MEDS: CarBAMazepine 200 MG TABLET PO SCH ×2 (08:36→17:16)
[2020-04-02] MEDS: LORazepam 2 MG TABLET PO PRN ×2 (08:41→15:54)
[2020-04-02 08:54] VITALS: BP 106/66
[2020-04-02] MEDS: ACETAMINOPHEN 325 MG TABLET PO PRN (12:31)
[2020-04-02 16:32] VITALS: BP 112/73
[2020-04-02] MEDS: IBUPROFEN 400 MG TABLET PO PRN (17:22)
[2020-04-02 17:23] VITALS: BP 112/73
[2020-04-02] MEDS: ZOLPIDEM TARTRATE 10 MG TABLET PO PRN (20:30)
[2020-04-03] VITALS: BP 102/60
[2020-04-03] MEDS: LORazepam 2 MG TABLET PO PRN ×3 (01:28→20:34)
[2020-04-03] MEDS: ACETAMINOPHEN 325 MG TABLET PO PRN (03:14)
[2020-04-03] MEDS: HALOPERIDOL 5 MG TABLET PO PRN (03:14)
[2020-04-03] MEDS: MULTIVITAMINS WITH MINERALS, THERAPEUTIC TABLET PO SCH (08:33)
[2020-04-03] MEDS: MONTELUKAST SODIUM 10 MG TABLET PO SCH (08:34)
[2020-04-03] MEDS: CarBAMazepine 200 MG TABLET PO SCH ×2 (08:34→16:22)
[2020-04-03] MEDS: PredniSONE 20 MG TABLET PO SCH (08:34)
[2020-04-03] MEDS: RisperiDONE 3 MG TABLET PO SCH ×2 (08:34→16:22)
[2020-04-03] MEDS: ALBUTEROL SULFATE HFA 90 MCG/PUFF 8 GM INHALER IH PRN ×2 (08:37→17:14)
[2020-04-03 09:17] VITALS: BP 126/76
[2020-04-03] MEDS: MAG HYDROX/AL HYDROX/SIMETH ES 30 ML SUSPENSION UDCUP PO PRN ×2 (14:22→20:35)
[2020-04-03] MEDS: IBUPROFEN 400 MG TABLET PO PRN (16:25)
[2020-04-03 16:26] VITALS: BP 107/69
[2020-04-04 02:45] VITALS: BP 16/60
[2020-04-04] MEDS: ACETAMINOPHEN 325 MG TABLET PO PRN ×2 (02:50→23:51)
[2020-04-04] MEDS: LORazepam 2 MG TABLET PO PRN ×2 (02:50→16:21)
[2020-04-04] MEDS: HALOPERIDOL 5 MG TABLET PO PRN (02:50)
[2020-04-04] MEDS: ALBUTEROL SULFATE HFA 90 MCG/PUFF 8 GM INHALER IH PRN ×2 (04:09→14:29)
[2020-04-04] MEDS: RisperiDONE 3 MG TABLET PO SCH ×2 (08:09→16:06)
[2020-04-04] MEDS: MULTIVITAMINS WITH MINERALS, THERAPEUTIC TABLET PO SCH (08:09)
[2020-04-04] MEDS: CarBAMazepine 200 MG TABLET PO SCH ×2 (08:10→16:06)
[2020-04-04] MEDS: PredniSONE 20 MG TABLET PO SCH (08:10)
[2020-04-04] MEDS: MONTELUKAST SODIUM 10 MG TABLET PO SCH (08:10)
[2020-04-04 09:00] VITALS: BP 116/68
[2020-04-04] MEDS ORDERED: 0.9% SODIUM CHLORIDE 5 ML NEB SOLUTION NEB ONE (11:45)
[2020-04-04] MEDS: ALBUTEROL SULFATE 2.5 MG/0.5 ML NEB SOLUTION NEB PRN (12:04)
[2020-04-04] MEDS: MAG HYDROX/AL HYDROX/SIMETH ES 30 ML SUSPENSION UDCUP PO PRN ×2 (14:33→14:37)
[2020-04-04] MEDS: IBUPROFEN 400 MG TABLET PO PRN (16:21)
[2020-04-04 16:26] VITALS: BP 116/62
[2020-04-04] MEDS: ZOLPIDEM TARTRATE 10 MG TABLET PO PRN (23:50)
[2020-04-05 00:02] VITALS: BP 118/74
[2020-04-05] MEDS: LORazepam 2 MG TABLET PO PRN (00:15)
[2020-04-05 08:00] VITALS: BP 138/79
[2020-04-05] MEDS: CarBAMazepine 200 MG TABLET PO SCH (08:57)
[2020-04-05] MEDS: RisperiDONE 3 MG TABLET PO SCH (08:57)
[2020-04-05] MEDS: PredniSONE 20 MG TABLET PO SCH (08:57)
[2020-04-05] MEDS: MONTELUKAST SODIUM 10 MG TABLET PO SCH (08:57)
[2020-04-05] MEDS: MULTIVITAMINS WITH MINERALS, THERAPEUTIC TABLET PO SCH (08:57)
[2020-04-05] MEDS: ALBUTEROL SULFATE HFA 90 MCG/PUFF 8 GM INHALER IH PRN (09:39)
[2020-04-05] MEDS ORDERED: CARB100 PO (11:05)
[2020-04-05] MEDS ORDERED: RISP3TAB14 PO (11:05)
[2020-04-05] MEDS ORDERED: PRED20 PO (11:07)
== END 2020-04-05 11:50 | disposition home or self-care (01) | DRG 885 ==
LOC: 3EI 13:46 → 3EX 03-22 10:00
PROVIDERS: ADMIT Psychiatry & Neurology Child & Adolescent Psychiatry; ATTEND Psychiatry & Neurology Child & Adolescent Psychiatry
DX: F20.0 Paranoid schizophrenia (principal); J45.909 Unspecified asthma, uncomplicated; F10.10 Alcohol abuse, uncomplicated; F17.200 Nicotine dependence, unspecified, uncomplicated; Z20.828 Contact with and (suspected) exposure to other viral communicable diseases; J44.9 Chronic obstructive pulmonary disease, unspecified; Z59.0 Homelessness; F41.9 Anxiety disorder, unspecified; R03.0 Elevated blood-pressure reading, without diagnosis of hypertension; Z91.19 Patient's noncompliance with other medical treatment and regimen
CPT/HCPCS: 83735; 84100; 87081; 94640; G0378; J1200; J1630; J2060; J3535

== ENCOUNTER 2020-04-30 17:33 | Emergency (ER) | payer MEDICARE, OTHER ==
[~2020-04-30] VITALS: Ht 177.8 cm; Wt 75.0 kg
[~2020-04-30 17:33] MED LIST changes: -ALBU8HFA IH; -BENZ100C68 PO; +CARB100 PO; -COMBISP IH; -DIPH12.54 PO; -FLUT16H NASAL; -FOLI-130 PO; +MONT-35 PO; -MONT10TA21 PO; -PRED10 PO; -PRED5 PO; +RISP3TAB14 PO; -TIOT185 IH
[2020-04-30] MEDS ORDERED: PERMETHRIN 1% 60 ML LOTION TP ONE (18:15)
[2020-04-30] MEDS ORDERED: PERMETHRIN 5% 60 GM CREAM TP ONE (18:30)
[2020-04-30] MEDS ORDERED: ALBUTEROL SULFATE HFA 90 MCG/PUFF 8 GM INHALER IH ONE (19:00)
[2020-04-30 19:16] VITALS: BP 120/78
== END 2020-04-30 19:43 | disposition home or self-care (01) ==
LOC: EMS 17:33
DX: B86 Scabies (principal); F17.210 Nicotine dependence, cigarettes, uncomplicated; J45.909 Unspecified asthma, uncomplicated; F20.9 Schizophrenia, unspecified
CPT/HCPCS: 94640; J3535

== ENCOUNTER 2020-05-14 16:45 | Emergency (ER) | payer MEDICARE, OTHER ==
[~2020-05-14] VITALS: Ht 177.8 cm; Wt 75.0 kg
[2020-05-14 16:55] VITALS: BP 130/65
[2020-05-14] MEDS ORDERED: BACITRACIN 0.9 GM PACKET OINTMENT TP ONE (17:30)
[2020-05-14] MEDS ORDERED: PERTUSS(ACELL),DIPH,TET VAC/PF 0.5 ML VIAL IM ONE (17:30)
== END 2020-05-14 17:36 | disposition home or self-care (01) ==
LOC: EMS 16:45
DX: F20.9 Schizophrenia, unspecified (principal); Z76.0 Encounter for issue of repeat prescription
CPT/HCPCS: 99406; Z7502

== ENCOUNTER 2020-05-29 13:49 | Emergency (ER) | payer MEDICARE, OTHER ==
[~2020-05-29] VITALS: Ht 175.3 cm; Wt 70.5 kg
[2020-05-29 13:55] VITALS: BP 115/69
[2020-05-29] MEDS ORDERED: ALBUTEROL SULFATE HFA 90 MCG/PUFF 8 GM INHALER IH ONE (15:00)
== END 2020-05-29 16:19 | disposition home or self-care (01) ==
LOC: EMS 13:56
DX: J45.901 Unspecified asthma with (acute) exacerbation (principal); B85.2 Pediculosis, unspecified; F25.9 Schizoaffective disorder, unspecified; J45.909 Unspecified asthma, uncomplicated; F17.210 Nicotine dependence, cigarettes, uncomplicated; Z88.1 Allergy status to other antibiotic agents
CPT/HCPCS: 94640; J3535

== ENCOUNTER 2020-06-26 11:48 | Emergency (ER) | payer MEDICARE, OTHER ==
[~2020-06-26] VITALS: Ht 177.8 cm; Wt 59.1 kg
[~2020-06-26 11:48] MED LIST changes: -RISP3TAB14 PO; +RISP3TAB35 PO
[2020-06-26 11:54] VITALS: BP 121/79
== END 2020-06-26 14:39 | disposition home or self-care (01) ==
LOC: EMS 11:53
DX: J44.9 Chronic obstructive pulmonary disease, unspecified (principal); F20.9 Schizophrenia, unspecified; F17.210 Nicotine dependence, cigarettes, uncomplicated; Z76.0 Encounter for issue of repeat prescription; Z88.2 Allergy status to sulfonamides; Z79.899 Other long term (current) drug therapy
CPT/HCPCS: Z7502

== ENCOUNTER 2020-10-18 15:08 | Emergency (ER) | payer MEDICARE, OTHER ==
[~2020-10-18] VITALS: Ht 177.8 cm; Wt 81.8 kg
[2020-10-18 16:00] LABS: EOSINOPHILS % (AUTO) 3.4 % (1.0-6.0); HEMATOCRIT 42.6 % (41-53); LYMPHOCYTES # (AUTO) 1.6 K/uL (1.0-4.8); LYMPHOCYTES % (AUTO) 17.4 % (22.0-44.0); MEAN CORPUSCULAR HEMOGLOBIN 30.9 pg (26.0-34.0); MEAN CORPUSCULAR HGB CONC 32.8 G/dL (31.0-37.0); MEAN CORPUSCULAR VOLUME 94 fL (80-100); MONOCYTES # (AUTO) 0.4 K/uL (0.1-1.0); MONOCYTES % (AUTO) 4.8 % (2.0-9.0); NEUTROPHILS # (AUTO) 6.7 K/uL (1.8-7.7); NEUTROPHILS % (AUTO) 73.4 % (40.0-70.0); PLATELET COUNT (AUTO) 279 K/uL (150-450); RED BLOOD CELL COUNT(AUTO) 4.52 MIL/uL (4.50-5.90); RED CELL DISTRIBUTION WIDTH 15.6 % (11.5-14.5)
[2020-10-18] MEDS ORDERED: LORazepam 2 MG TABLET PO ONE (16:00)
[2020-10-18 16:08] LABS: ANION GAP 11 mmol/L (8-16); CALCIUM, TOTAL 8.9 mg/dL (8.8-10.5); CARBON DIOXIDE 30 mmol/L (22-29); CHLORIDE 103 mmol/L (98-107); CREATININE 0.67 mg/dL (0.60-1.30); GLOMERULAR FILTR. RATE CALC > 60 mL/min (>60); GLUCOSE,RANDOM 63 mg/dL (70-110); POTASSIUM 4.1 mmol/L (3.5-5.1); SODIUM SERUM 144 mmol/L (136-145); UREA NITROGEN, BLOOD 25 mg/dL (7-18)
[2020-10-18 16:13] LABS: ALANINE AMINOTRANSFERASE 27 U/L (12-78); ALBUMIN 3.8 g/dL (3.4-5.0); ALKALINE PHOSPHATASE 79 U/L (46-116); ASPARTATE AMINOTRANSFERASE 22 U/L (15-37); BILIRUBIN,TOTAL 0.2 mg/dL (0.1-1.0); TOTAL PROTEIN, SERUM 7.2 g/dL (6.4-8.2)
[2020-10-18] MEDS ORDERED: DEXAMETHASONE SOD PHOS 4 MG/ML 5 ML VIAL IM ONE (16:45)
[2020-10-18] MEDS ORDERED: ALBUTEROL SULFATE HFA 90 MCG/PUFF 8 GM INHALER IH ONE (16:45)
[2020-10-18 18:48] LABS: AMPHET/METH SCREEN,URINE NEGATIVE (NEGATIVE); BARBITURATE SCREEN, URINE NEGATIVE (NEGATIVE); BENZODIAZEPINES SCREEN,URINE NEGATIVE (NEGATIVE); CANNABINOID SCREEN,URINE NEGATIVE (NEGATIVE); COCAINE SCREEN,URINE NEGATIVE (NEGATIVE); METHADONE SCREEN, URINE NEGATIVE (NEGATIVE); OPIATE SCREEN,URINE NEGATIVE (NEGATIVE); PHENCYCLIDINE SCREEN,URINE NEGATIVE (NEGATIVE)
[2020-10-18 20:00] VITALS: BP 122/85
== END 2020-10-18 20:13 | disposition home or self-care (01) ==
LOC: EMS 15:08
DX: J45.909 Unspecified asthma, uncomplicated (principal); F20.9 Schizophrenia, unspecified; F17.210 Nicotine dependence, cigarettes, uncomplicated; F12.90 Cannabis use, unspecified, uncomplicated; F19.90 Other psychoactive substance use, unspecified, uncomplicated; Z88.1 Allergy status to other antibiotic agents
CPT/HCPCS: 36415; 71045; 80053; 80307; 85025; 93005; 94640; 96372; 99285; G0480; J1100; J3535

== ENCOUNTER 2020-10-19 12:47 | Emergency (ER) | payer MEDICARE, OTHER ==
[~2020-10-19] VITALS: Ht 177.8 cm; Wt 70.5 kg
[2020-10-19] MEDS ORDERED: ALBUTEROL SULFATE HFA 90 MCG/PUFF 8 GM INHALER IH ONE (13:30)
[2020-10-19] MEDS ORDERED: CETIRIZINE HCL 10 MG TABLET PO ONE ×2 (14:45→15:30)
[2020-10-19 15:19] VITALS: BP 126/77
[2020-10-19] MEDS ORDERED: HALOPERIDOL 5 MG TABLET PO ONE (15:30)
== END 2020-10-19 16:00 | disposition home or self-care (01) ==
LOC: EMS 12:52
DX: J44.9 Chronic obstructive pulmonary disease, unspecified (principal); F20.9 Schizophrenia, unspecified
CPT/HCPCS: 94640; 96372; 99283; 99284; J3535

== ENCOUNTER 2021-04-04 12:21 | Emergency (ER) | payer MEDICARE, OTHER ==
[~2021-04-04] VITALS: Ht 167.6 cm; Wt 59.1 kg
[2021-04-04 14:45] VITALS: BP 145/96
== END 2021-04-04 15:27 | disposition home or self-care (01) ==
LOC: EMS 13:15
DX: F10.10 Alcohol abuse, uncomplicated (principal); B85.2 Pediculosis, unspecified; F17.210 Nicotine dependence, cigarettes, uncomplicated; J45.909 Unspecified asthma, uncomplicated; F20.9 Schizophrenia, unspecified; J44.9 Chronic obstructive pulmonary disease, unspecified; Z88.1 Allergy status to other antibiotic agents
CPT/HCPCS: 99283; Z7502

== ENCOUNTER 2021-09-18 19:41 | Emergency (ER) | payer MEDICARE, MEDICAID ==
[~2021-09-18] VITALS: Ht 170.2 cm; Wt 68.2 kg
[2021-09-19] MEDS ORDERED: DiphenhydrAMINE HCL 25 MG CAPSULE PO ONE (02:15)
[2021-09-19] MEDS ORDERED: HALOPERIDOL 5 MG TABLET PO ONE (02:15)
[2021-09-19 02:38] LABS: BASOPHILS % (AUTO) 1.4 % (0.0-2.0); EOSINOPHILS % (AUTO) 1.2 % (1.0-6.0); HEMATOCRIT 29.4 % (41-53); HEMOGLOBIN 9.2 g/dL (13.5-17.5); LYMPHOCYTES # (AUTO) 2.2 K/uL (1.0-4.8); LYMPHOCYTES % (AUTO) 30.7 % (22.0-44.0); MEAN CORPUSCULAR HEMOGLOBIN 23.6 pg (26.0-34.0); MEAN CORPUSCULAR HGB CONC 31.3 G/dL (31.0-37.0); MEAN CORPUSCULAR VOLUME 75 fL (80-100); MONOCYTES # (AUTO) 0.7 K/uL (0.1-1.0); MONOCYTES % (AUTO) 9.3 % (2.0-9.0); NEUTROPHILS # (AUTO) 4.2 K/uL (1.8-7.7); NEUTROPHILS % (AUTO) 57.4 % (40.0-70.0); PLATELET COUNT (AUTO) 554 K/uL (150-450); RED BLOOD CELL COUNT(AUTO) 3.91 MIL/uL (4.50-5.90)
[2021-09-19 02:47] LABS: ANION GAP 7 mmol/L (8-16); CALCIUM, TOTAL 8.8 mg/dL (8.8-10.5); CARBON DIOXIDE 30 mmol/L (22-29); CHLORIDE 100 mmol/L (98-107); CREATININE 0.86 mg/dL (0.60-1.30); GLOMERULAR FILTR. RATE CALC > 60 mL/min (>60); GLUCOSE,RANDOM 83 mg/dL (70-110); POTASSIUM 3.7 mmol/L (3.5-5.1); SODIUM SERUM 137 mmol/L (136-145); UREA NITROGEN, BLOOD 14 mg/dL (7-18)
[2021-09-19 02:52] LABS: ALANINE AMINOTRANSFERASE 28 U/L (12-78); ALBUMIN 2.8 g/dL (3.4-5.0); ALKALINE PHOSPHATASE 87 U/L (46-116); ASPARTATE AMINOTRANSFERASE 26 U/L (15-37); BILIRUBIN,TOTAL 0.2 mg/dL (0.1-1.0); TOTAL PROTEIN, SERUM 7.4 g/dL (6.4-8.2)
[2021-09-19 03:44] LABS: COVID AG,FIA SOURCE NASOPHARYNGEAL
[2021-09-19] MEDS ORDERED: LORazepam 2 MG TABLET PO PRN (04:00)
[2021-09-19] MEDS ORDERED: ZOLPIDEM TARTRATE 10 MG TABLET PO PRN (04:00)
[2021-09-19] MEDS ORDERED: HALOPERIDOL 5 MG TABLET PO PRN (04:00)
[2021-09-19 12:06] VITALS: BP 112/62
== END 2021-09-19 12:32 | disposition left against medical advice (07) ==
LOC: EMS 19:58 → B2S 09-19 10:37 → UNDOADMIN 09-19 10:37 → B2X 09-19 11:05 → B2S 09-19 11:05 → UNDOADMIN 09-19 11:58 → EMS 09-19 12:32 → UNDODISIN 09-19 12:55
DX: F20.9 Schizophrenia, unspecified (principal); R45.851 Suicidal ideations; D50.9 Iron deficiency anemia, unspecified; Z20.822 Contact with and (suspected) exposure to COVID-19
CPT/HCPCS: 80053; 85025; 87426; 99284; G0480